=== PATIENT | female | born 1975 | race Hispanic/Latino ===

== ENCOUNTER 2020-10-01 20:11 | Observation (INO) | payer MEDICAID ==
[~2020-10-01] VITALS: Ht 157.5 cm; Wt 147.4 kg
[2020-10-01 20:22] VITALS: BP 120/59
[2020-10-01 22:00] VITALS: BP 106/58
[2020-10-02] VITALS: BP 121/61
[2020-10-02] MEDS ORDERED: ONDANSETRON 4MG INJ IV PRN (01:30)
[2020-10-02] MEDS ORDERED: GLUCAGON 1MG KIT 1 MG ML IM PRN (02:00)
[2020-10-02] MEDS ORDERED: DEXTROSE 50%-WATER 50 ML DISP.SYRIN IV PRN (02:00)
[2020-10-02] MEDS ORDERED: ALBUTEROL 0.042% 1.25MG/3ML IH PRN (02:30)
[2020-10-02 04:00] VITALS: BP 109/68
[2020-10-02 06:00] VITALS: BP 116/69
[2020-10-02] MEDS: INSULIN HUMULIN R 100 UNIT/ML 3ML SQ SCH ×2 (06:00→12:00)
[2020-10-02 06:19] LABS: HEMATOCRIT 39.7 % (36-48); MEAN CORPUSCULAR HEMOGLOBIN 27.5 pg (27.0-33.0); MEAN CORPUSCULAR HGB CONC 32.2 g/dL (32.0-36.0); MEAN CORPUSCULAR VOLUME 85.2 fL (79-99); RED BLOOD CELL COUNT(AUTO) 4.66 MIL/uL (4.00-5.50); RED CELL DISTRIBUTION WIDTH 15.9 % (11.0-15.5); WHITE BLOOD COUNT (AUTO) 11.7 K/uL (4.8-10.8)
[2020-10-02 06:37] LABS: ALBUMIN 2.6 g/dL (3.5-5.0); BILIRUBIN,TOTAL 0.3 mg/dL (0.2-1.0); CREATININE 0.6 mg/dL (0.5-1.5); POTASSIUM 3.5 mmol/L (3.5-5.1); TOTAL PROTEIN, SERUM 6.6 g/dL (6.0-8.3)
[2020-10-02] MEDS ORDERED: FAMOTIDINE 20MG VIAL IV SCH (09:00)
[2020-10-02 15:30] VITALS: BP 134/72
[2020-10-02 19:56] VITALS: BP 118/41
== END 2020-10-02 20:06 | disposition home or self-care (01) ==
LOC: EDH 20:11 → EDHIP 10-02 01:22
PROVIDERS: ADMIT Internal Medicine; ATTEND Internal Medicine
DX: Z43.0 Encounter for attention to tracheostomy (principal); E11.9 Type 2 diabetes mellitus without complications; E66.01 Morbid (severe) obesity due to excess calories; I10 Essential (primary) hypertension; K21.9 Gastro-esophageal reflux disease without esophagitis; E03.9 Hypothyroidism, unspecified; F41.9 Anxiety disorder, unspecified; G47.00 Insomnia, unspecified; M79.7 Fibromyalgia; R53.81 Other malaise; Z86.16 Personal history of COVID-19; Z68.43 Body mass index [BMI] 50.0-59.9, adult
CPT/HCPCS: 36415; 71045; 80053; 85027; 92610; 96374; 99284; G0378 ×19